=== PATIENT | male | born 1975 | race Two or more races ===

== ENCOUNTER 2018-04-12 23:37 | Emergency (ER) | payer SELFPAY ==
[~2018-04-12] VITALS: Ht 175.3 cm; Wt 81.6 kg
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
[2018-04-12] MEDS ORDERED: TDAP [DIPH/PERTUSSIS/TET] 0.5 ML VIAL IM ONE (23:56)
[2018-04-13] MEDS: TDAP [DIPH/PERTUSSIS/TET] 0.5 ML VIAL IM ONE (00:10)
[2018-04-13 05:02] VITALS: BP 128/82
== END 2018-04-13 05:02 | disposition home or self-care (01) ==
LOC: ER 23:40
DX: S00.83XA Contusion of other part of head, initial encounter (principal); S50.311A Abrasion of right elbow, initial encounter; F10.129 Alcohol abuse with intoxication, unspecified; Z60.2 Problems related to living alone; Y04.0XXA Assault by unarmed brawl or fight, initial encounter; Y93.89 Activity, other specified; Y92.89 Other specified places as the place of occurrence of the external cause; Y99.8 Other external cause status
CPT/HCPCS: 70450-TC; 70486-TC; 73080-TC; 90715; A6402